=== PATIENT | male | born 1950 | race Caucasian/White ===

== ENCOUNTER 2022-10-17 07:53 | Day surgery (SDC) | payer MEDICAID ==
[~2022-10-17] VITALS: Ht 157.5 cm; Wt 62.0 kg
[~2022-10-17 07:53] MED LIST: SODIUM CHLORIDE 0.9% 1,000 ML ONE
[2022-10-17] MEDS ORDERED: RINGERS SOLUTION,LACTATED 500 ML IV ONE (08:00)
[2022-10-17 08:25] LABS: COVID AG,FIA SOURCE NASAL SWAB
[2022-10-17] MEDS ORDERED: METF-1211 PO (08:28)
[2022-10-17] MEDS ORDERED: SODIUM CHLORIDE 0.9% 1,000 ML IV ONE (09:00)
[2022-10-17 09:01] LABS: GLUCOMETER DEV NAME(LOC) SDS.; GLUCOSE,POINT OF CARE 115 MG/DL (70-110)
[2022-10-17] MEDS ORDERED: PROPOFOL 1% 20 ML VIAL IVP ONE (12:00)
[2022-10-17] MEDS ORDERED: LIDOCAINE/PF 2% 5 ML VIAL IM ONE (12:00)
== END 2022-10-17 12:08 | disposition home or self-care (01) ==
LOC: SURGERY 07:53
PROVIDERS: ATTEND Internal Medicine Gastroenterology
DX: Z12.11 Encounter for screening for malignant neoplasm of colon (principal); K63.5 Polyp of colon; K74.60 Unspecified cirrhosis of liver; E11.9 Type 2 diabetes mellitus without complications; K64.8 Other hemorrhoids; K31.89 Other diseases of stomach and duodenum; Z79.899 Other long term (current) drug therapy; Z20.822 Contact with and (suspected) exposure to COVID-19; E78.5 Hyperlipidemia, unspecified; Z98.890 Other specified postprocedural states
CPT/HCPCS: 82962; 88305; 88312; 88313; 87426; 45380; 43239; C1769; J2704; J3490; J7030; C9803